=== PATIENT | male | born 1955 ===

== ENCOUNTER → 2022-09-02 | Day surgery (SDC) | payer OTHER | END | disposition home or self-care (01) | LOC: ADM 08-29 13:15 → AMB-ENDOS 05:27 | PROVIDERS: ATTEND Colon & Rectal Surgery | DX: K52.89 Other specified noninfective gastroenteritis and colitis (principal); K64.8 Other hemorrhoids; K92.1 Melena; Z85.038 Personal history of other malignant neoplasm of large intestine; Z93.3 Colostomy status; Z20.822 Contact with and (suspected) exposure to COVID-19 ==